=== PATIENT | female | born 1935 | race Caucasian/White ===

== ENCOUNTER → 2018-02-07 10:59 | Outpatient (REF) | payer OTHER, SELFPAY ==
[2018-02-07 11:20] LABS: Hemoglobin A1C% w Est Avg Glu 7.8 % (4.0-6.0)
[2018-02-07 11:37] LABS: Alanine Aminotransferase 24 IU/L (9-52); Albumin Globulin Ratio 1.5 (1.0-2.8); Alkaline Phosphatase 70 U/L (38-126); Aspartate Aminotransferase 18 IU/L (14-36); Bilirubin Total 1.3 mg/dL (0.2-1.3); Blood Urea Nitrogen 18 mg/dL (7-17); Calcium 9.7 mg/dL (8.4-10.2); Carbon Dioxide 31 mmol/L (22-32); Chloride 99 mmol/L (98-107); Cholesterol 164 mg/dL (140-199); Estimated Glomerular Filt Rate > 60.0 mL/min (>60); Globulin 2.6 g/dL (1.7-4.1); Glucose 119 mg/dL (80-110); HDL Cholesterol 71 mg/dL (40-60); HEMOLYSIS < 15 (0-50); LDL Cholesterol Calculated 69 mg/dL (<100); Sodium 138 mmol/L (137-145); Total Protein 6.6 g/dL (6.3-8.2); Triglycerides 118 mg/dL (35-150)
[2018-02-07 11:39] LABS: Potassium 5.8 mmol/L (3.4-5.1)
== END ==
LOC: LAB 10:59
PROVIDERS: Family Provider Internal Medicine; PCP Internal Medicine; Visit Provider Internal Medicine
DX: E11.9 Type 2 diabetes mellitus without complications (principal); E78.00 Pure hypercholesterolemia, unspecified
CPT/HCPCS: 80053; 80061; 83036

== ENCOUNTER → 2018-05-06 10:09 | Outpatient (CLI) | payer OTHER, SELFPAY | PROVIDERS: PCP Internal Medicine; Visit Provider Internal Medicine | DX: M85.88 Other specified disorders of bone density and structure, other site (principal); Z78.0 Asymptomatic menopausal state; Z87.891 Personal history of nicotine dependence | CPT/HCPCS: 77080 ==

== ENCOUNTER → 2018-12-18 12:17 | Outpatient (CLI) | payer OTHER, SELFPAY ==
--- NOTE | 2018-12-18 | DI.RAD.S_ITS ---
PROCEDURE: XR CHEST 2V INDICATIONS: COUGH CHRONIC TECHNIQUE: 2 views of the chest were acquired. COMPARISON: None. FINDINGS: Surgical changes and devices: None. Lungs and pleura: Lungs are clear. No pleural effusions or pneumothorax. Mediastinum: Mediastinal contours are normal. Heart size is normal. Bones and chest wall: No suspicious bony abnormalities. Soft tissues appear unremarkable. IMPRESSION: No acute cardiopulmonary pathology. Dictated by: Hu Santiago M.D. on 12/18/2018 at 14:05 Approved by: Hu Santiago M.D. on 12/18/2018 at 14:05
== END ==
PROVIDERS: PCP Internal Medicine; Visit Provider Internal Medicine
DX: R05 Cough (principal)
CPT/HCPCS: 71046

== ENCOUNTER → 2019-08-20 11:32 | Outpatient (CLI) | payer OTHER, SELFPAY ==
[2019-08-20 12:40] LABS: BUN Creatinine Ratio 31.7 (6-22); Blood Urea Nitrogen 19 mg/dL (7-17); Carbon Dioxide 29 mmol/L (22-32); Chloride 98 mmol/L (98-107); Estimated Glomerular Filt Rate > 60.0 mL/min (>60); Glucose 244 mg/dL (80-110); HEMOLYSIS < 15 (0-50); Potassium 4.3 mmol/L (3.4-5.1); Sodium 138 mmol/L (137-145)
[2019-08-20 12:54] LABS: Hemoglobin A1C% w Est Avg Glu 7.9 % (4.0-6.0)
== END ==
PROVIDERS: PCP Student in an Organized Health Care Education/Training Program; Referring Provider Student in an Organized Health Care Education/Training Program; Visit Provider Student in an Organized Health Care Education/Training Program
DX: E11.9 Type 2 diabetes mellitus without complications (principal); I10 Essential (primary) hypertension
CPT/HCPCS: 36415; 80048; 83036

== ENCOUNTER → 2019-09-01 10:07 | Outpatient (CLI) | payer OTHER, SELFPAY | PROVIDERS: PCP Student in an Organized Health Care Education/Training Program; Referring Provider Student in an Organized Health Care Education/Training Program; Visit Provider Student in an Organized Health Care Education/Training Program | DX: Z13.820 Encounter for screening for osteoporosis (principal); M85.851 Other specified disorders of bone density and structure, right thigh; Z78.0 Asymptomatic menopausal state; E11.9 Type 2 diabetes mellitus without complications; Z91.89 Other specified personal risk factors, not elsewhere classified; Z87.891 Personal history of nicotine dependence | CPT/HCPCS: 77080 ==

== ENCOUNTER → 2019-12-18 10:09 | Outpatient (CLI) | payer OTHER, SELFPAY ==
[2019-12-18 11:34] LABS: Hemoglobin A1C% w Est Avg Glu 9.9 % (4.0-6.0)
== END ==
PROVIDERS: PCP Student in an Organized Health Care Education/Training Program; Referring Provider Student in an Organized Health Care Education/Training Program; Visit Provider Student in an Organized Health Care Education/Training Program
DX: E11.9 Type 2 diabetes mellitus without complications (principal)
CPT/HCPCS: 36415; 83036

== ENCOUNTER → 2020-03-24 11:58 | Outpatient (CLI) | payer OTHER, SELFPAY ==
[2020-03-24 12:23] LABS: Hemoglobin A1C% w Est Avg Glu 9.1 % (4.0-6.0)
[2020-03-24 15:51] LABS: Creatinine Urine Random 49.1 mg/dL
[2020-03-24 15:58] LABS: Microalbumin Urine Random < 0.6 mg/dL (0-1.6)
== END ==
PROVIDERS: PCP Student in an Organized Health Care Education/Training Program; Referring Provider Student in an Organized Health Care Education/Training Program; Visit Provider Student in an Organized Health Care Education/Training Program
DX: E11.9 Type 2 diabetes mellitus without complications (principal)
CPT/HCPCS: 36415; 82043; 82570; 83036

== ENCOUNTER → 2020-09-13 15:28 | Outpatient (CLI) | payer MEDICARE, SELFPAY ==
[2020-09-13] MEDS: COVID-19 VACC, Ad26(JANSSEN)/PF 0.5 ML IM (15:48)
== END ==
PROVIDERS: PCP Student in an Organized Health Care Education/Training Program; Visit Provider Internal Medicine
DX: Z23 Encounter for immunization (principal)
CPT/HCPCS: 0031A; 91303

== ENCOUNTER → 2020-09-14 10:18 | Outpatient (CLI) | payer OTHER, SELFPAY ==
[2020-09-14 11:01] LABS: Hemoglobin A1C% w Est Avg Glu 9.9 % (4.0-6.0)
[2020-09-14 11:12] LABS: BUN Creatinine Ratio 30.5 (6-22); Blood Urea Nitrogen 18 mg/dL (7-17); Estimated Glomerular Filt Rate > 60.0 mL/min (>60)
== END ==
PROVIDERS: PCP Student in an Organized Health Care Education/Training Program; Referring Provider Student in an Organized Health Care Education/Training Program; Visit Provider Student in an Organized Health Care Education/Training Program
DX: E11.9 Type 2 diabetes mellitus without complications (principal); I10 Essential (primary) hypertension
CPT/HCPCS: 36415; 82565; 83036; 84520

== ENCOUNTER → 2020-12-31 14:53 | Outpatient (CLI) | payer OTHER, SELFPAY ==
[2020-12-31 15:55] LABS: Hemoglobin A1C% w Est Avg Glu 9.8 % (4.0-6.0)
[2020-12-31 16:03] LABS: BUN Creatinine Ratio 30.4 (6-22); Blood Urea Nitrogen 17 mg/dL (7-17); Estimated Glomerular Filt Rate > 60.0 mL/min (>60)
== END ==
PROVIDERS: PCP Student in an Organized Health Care Education/Training Program; Referring Provider Student in an Organized Health Care Education/Training Program; Visit Provider Student in an Organized Health Care Education/Training Program
DX: E11.9 Type 2 diabetes mellitus without complications (principal); I10 Essential (primary) hypertension
CPT/HCPCS: 36415; 82565; 83036; 84520

== ENCOUNTER 2021-03-29 11:31 | Emergency (ER) | payer OTHER, SELFPAY ==
[2021-03-29 11:35] VITALS: BP 138/67; PULSE 93; RESP 14; TEMP 36.8; O2SAT 98
--- NOTE | 2021-03-29 11:39 | DI.RAD.S_ITS ---
PROCEDURE: XR FOOT LT MIN 3V INDICATIONS: Foot pain unknown injury TECHNIQUE: 3 views of the foot were acquired. COMPARISON: None. FINDINGS: Bones: No fractures or dislocations. No suspicious bony lesions. Soft tissues: No tibiotalar joint effusion. Achilles tendon appears normal. IMPRESSION: No acute finding. Dictated by: Jesse Cain M.D. on 03/29/2021 at 12:01 Approved by: Jesse Cain M.D. on 03/29/2021 at 12:02
--- NOTE | 2021-03-29 13:37 | DI.US.S_ITS ---
PROCEDURE: US PERIPH VENOUS LOW EXTREM LT INDICATIONS: PAIN, REDNESS, AND SWELLING. NO INJURY. TECHNIQUE: Real-time imaging, as well as color and pulse Doppler interrogation, were performed of the lower extremity deep veins from the inguinal ligament to the popliteal fossa. COMPARISON: None. FINDINGS: The common femoral, femoral and popliteal veins are normally compressible, and free of intraluminal thrombus. Color and pulse Doppler demonstrate normal phasic intraluminal flow. There is normal augmentation response to distal compression maneuver. IMPRESSION: No sonographic evidence of DVT. Dictated by: Jesse Cain M.D. on 03/29/2021 at 14:10 Approved by: Jesse Cain M.D. on 03/29/2021 at 14:11
[2021-03-29 13:53] LABS: Add Manual Diff / Slide Review NO; Basophils Absolute Auto 100 /uL (0-100); Basophils Percent Auto 0.6 % (0-2); Eosinophils Absolute Auto 0 /uL (0-450); Eosinophils Percent Auto 0.3 % (2-4); Hemoglobin 14.3 g/dL (12.0-16.0); Lymphocytes Absolute Auto 2100 /uL (1100-4500); Lymphocytes Percent Auto 15.5 % (25-40); Mean Corpuscular HGB Conc 32.4 % (30-36); Mean Corpuscular Volume 86.5 fL (80-100); Monocytes Absolute Auto 800 /uL (0-900); Monocytes Percent Auto 5.9 % (3-14); Neutrophils Absolute Auto 10500 /uL (1500-7000); Neutrophils Percent Auto 77.7 % (50-75); Platelet Count 298 X10^3/uL (150-400); Red Blood Cell Count 5.09 X10^6/uL (4.0-5.2); White Blood Cell Count 13.5 X10^3/uL (4.5-11.0)
[2021-03-29 14:04] LABS: C-Reactive Protein Quant 1.2 mg/dL (<1.0); Uric Acid 4.8 mg/dL (2.5-6.2)
[2021-03-29 14:18] LABS: Erythrocyte Sedimentation Rate 11 MM/HR (0-20)
--- NOTE | 2021-03-29 14:23 | ED_ITS ---
HPI - Extremity Problem General Chief complaint: Extremity Problem,Nontraumatic Stated complaint: CONSTANT PAIN IN LEFT FOOT X 5 DAYS Time Seen by Provider: 03/29/21 13:34 Source: patient Mode of arrival: Wheelchair Limitations: no limitations History of Present Illness HPI Narrative: 86-year-old female former smoker with history of diabetes presents with a chief complaint of left foot pain, redness and swelling over the past 5 days. She denies any injury. She has had no fever or chills. She is not dizzy nor weak or lightheaded. She denies any knee or calf pain. She denies any overuse, significant walking, cuts or injuries to her foot. Related Data Home Medications Medication Instructions Recorded Confirmed prednisolone acetate 1 % eye 1 drop EYE-LEFT BID ml 08/20/19 09/14/20 drops,suspension Previous Rx's Medication Instructions Recorded ketorolac 0.5 % eye drops 1 drop EYE-LEFT BID #3 ml 08/20/19 Glucose Test Strips #250 ea 08/16/20 glipizide 10 mg tablet, extended 10 mg PO BID #180 tab 09/18/20 release 24 hr blood sugar diagnostic (Blood #100 ea 09/22/20 Glucose Test) blood-glucose meter #1 ea 09/22/20 lancets 26 gauge #100 ea 09/22/20 pen needle, diabetic 31 gauge x #100 ea 12/28/2011/14 (CareFine Pen Needle) insulin detemir U-100 100 unit/mL 10 unit SUBCUT BEDTIME #15 ml 01/01/21 (3 mL) subcutaneous pen losartan 25 mg tablet 25 mg PO DAILY #90 tab 01/31/21 metformin 850 mg tablet 850 mg PO TID #270 tab 02/04/21 simvastatin 20 mg tablet 20 mg PO DAILY #90 tab 02/04/21 amoxicillin 875 mg-potassium 1 tab PO BID #20 tab 03/29/21 clavulanate 125 mg tablet (Augmentin) Allergies Allergy/AdvReac Type Severity Reaction Status Date / Time lisinopril AdvReac Mild Cough Verified 03/29/21 11:35 Review of Systems Review of Systems Narrative: GENERAL: Denies chills, fatigue, malaise, fever, sweats. HEENT: Denies sinus pain, ear pain, sore throat, difficulty swallowing, dizziness. RESPIRATORY: Denies dyspnea, cough, wheezing, hemoptysis, sputum. CARDIOVASCULAR: Denies chest pain, palpitations, orthopnea, edema, GASTROINTESTINAL: Denies nausea, vomiting, abdominal pain, diarrhea, constipation, melena. : Denies dysuria, frequency, incontinence, hematuria, urinary retention. MUSCULOSKELETAL: See HPI SKIN: See HPI NEUROLOGIC: Denies weakness, headache, numbness, change in speech, confusion, seizures, incoordination. PSYCHIATRIC: No concerning psychosocial issues. 12 point review of systems is negative except for those stated above Patient History Medical History (Updated 03/29/21 @ 14:28 by Brendan Moon DO) Benign familial tremor (~2017) Cataracts, bilateral (~2009) Chicken pox (~1940) Fractures (~2013) Hip pain (~2017) History of ectopic (~1958) Hypertension (~1997) Knee pain (~2017) Measles (~1939) Whooping cough (~1941) Surgical History (Updated 08/18/19 @ 21:17 by Zarina Mg) Anesthesia History of ectopic (~1958) Skin cancer of nose (~2014) Family History (Updated 08/18/19 @ 21:21 by Zarina Mg) Father Stroke Mother Lung cancer Brother Cancer Sister Abdominal infection Grandfather Prostate cancer Social History Smoking Status: Former smoker Smoking Status: Former smoker alcohol intake frequency: 0-2 drinks per day Substance Use Type: does not use Exam Narrative Exam Narrative: GEN: AOx3 and in mild distress EYES: Pupils are equal, round, and reactive to light and accommodation. Extraoccular muscles are intact bilaterally. There is no subconjunctival hemorrhage or exudate. CHEST: Lungs are clear to auscultation bilaterally and free of wheezes, rales, or rhonchi. Heart rate is regular rhythm, there are no murmurs, clicks, rubs, or gallops. There is no chest wall tenderness. ABD: Abdomen is soft and nontender. There is no guarding or rebound. Bowel sounds are normal in all 4 quadrants. There is no mass or organomegaly. EXT: Left lubricating machine tender to palpation with edema, redness and warmth. There is no in duration, fluctuance. There is no numbness or tingling. No obvious injury, cuts or breaks in the skin SKIN: Left foot with redness and warmth Initial Vital Signs Initial Vital Signs: Vital Signs Temperature 98.2 F 03/29/21 11:35 Pulse Rate 93 H 03/29/21 11:35 Respiratory Rate 14 03/29/21 11:35 Blood Pressure 138/67 03/29/21 11:35 Pulse Oximetry 98 03/29/21 11:35 Course Orders Ordered: ED Orders 03/29/21 11:39 XR foot LT min 3V Stat 03/29/21 13:37 US periph venous low extrem lt Stat 03/29/21 13:47 C-Reactive Protein Quant Stat Complete Blood Count AUTO DIFF Stat Erythrocyte Sedimentation Rate Stat Uric Acid Stat Vital Signs Vital signs: Vital Signs - 8 hr 03/29/21 11:35 03/29/21 14:32 Temperature 98.2 F Pulse Rate 93 H 90 Respiratory Rate 14 Blood Pressure 138/67 124/58 L Pulse Oximetry 98 99 MDM - Extremity (Nontraumatic) Lab Data Result diagrams: 03/29/21 13:47 Labs: Lab Results 03/29/21 03/29/21 Range/Units 13:47 13:47 WBC 13.5 H (4.5-11.0) X10^3/uL RBC 5.09 (4.0-5.2) X10^6/uL Hgb 14.3 (12.0-16.0) g/dL Hct 44.0 (36-46) % MCV 86.5 (80-100) fL MCH 28.0 (26-34) PG MCHC 32.4 (30-36) % RDW 14.0 (11.6-14.8) % Plt Count 298 (150-400) X10^3/uL Neut % (Auto) 77.7 H (50-75) % Lymph % (Auto) 15.5 L (25-40) % [place] % (Auto) 5.9 (3-14) % Eos % (Auto) 0.3 L (2-4) % Baso % (Auto) 0.6 (0-2) % Neut # (Auto) 37236 H (8818-1659) /uL Lymph # (Auto) 2100 (1030-5056) /uL [place] # (Auto) 800 (0-900) /uL Eos # (Auto) 0 (0-450) /uL Baso # (Auto) 100 (0-100) /uL ESR 11 (0-20) MM/HR Uric Acid 4.8 (2.5-6.2) mg/dL C-Reactive Protein 1.2 H (<1.0) mg/dL Imaging Data Extremity x-ray #1: Radiologist's Impression: [address] [address] XRay Report Signed Patient: Mariposa Posadas MR#: [id number] : 1935 Acct:[id number] Age/Sex: 86 / F Date of Service: 03/29/21 Loc: ED Accession Number: [id number] ?? Procedure: XR foot LT min 3V Ordering Provider: Brendan Moon D.O. PROCEDURE:? XR FOOT LT MIN 3V ? INDICATIONS:? Foot pain unknown injury ? TECHNIQUE:? 3 views of the foot were acquired.? ? COMPARISON:? None. ? FINDINGS:? ? Bones:? No fractures or dislocations.? No suspicious bony lesions.? ? Soft tissues:? No tibiotalar joint effusion.? Achilles tendon appears normal.? ? ? IMPRESSION:? No acute finding. ? ? Dictated by: Jesse Cain M.D. on 03/29/2021 at 12:01 ? ? Approved by: Jesse Cain M.D. on 03/29/2021 at 12:02 ? US - DVT: Radiologist's Impression: [address] [address] Ultrasound Report Signed Patient: Mariposa Posadas MR#: [id number] : 1935 Acct:[id number] Age/Sex: 86 / F Date of Service: 03/29/21 Loc: ED Accession Number: [id number] ?? Procedure: US periph venous low extrem lt Ordering Provider: Brendan Moon D.O. PROCEDURE:? US PERIPH VENOUS LOW EXTREM LT ? INDICATIONS:? PAIN, REDNESS, AND SWELLING. NO INJURY. ? TECHNIQUE:? Real-time imaging, as well as color and pulse Doppler interrogation, were performed of the lower extremity deep veins from the inguinal ligament to the popliteal fossa.? ? COMPARISON:? None. ? FINDINGS:? The common femoral, femoral and popliteal veins are normally compressible, and free of intraluminal thrombus.? Color and pulse Doppler demonstrate normal phasic intraluminal flow.? There is normal augmentation response to distal compression maneuver. ? ? IMPRESSION:? No sonographic evidence of DVT. ? ? Dictated by: Jesse Cain M.D. on 03/29/2021 at 14:10 ? ? Approved by: Jesse Cain M.D. on 03/29/2021 at 14:11 ? MDM Narrative Medical decision making narrative: Patient with painful swollen foot in the absence of injury. There is erythema and warmth. She was evaluated for cellulitis versus clot versus gouty arthritis. Ultrasound shows no evidence of clot. Patient is diabetic and has some cracking in her skin but no obvious wound, she does have an elevation in her white blood cells and the seems most consistent with infection. She is treated with antibiotics. She is given extensive return precautions and questions have been answered to her apparent satisfaction Discharge Plan Departure Patient Disposition: Home Clinical Impression: Cellulitis of foot, left Activity Restrictions/Additional Instructions: *You have been diagnosed with [left foot pain and redness likely due to infection. X-ray and ultrasound are very reassuring and showed no evidence of fracture or clot *What to do: *Please continue to take your regular medications as directed. [x ] New medication prescriptions sent to your pharmacy: [[facility] ] [ ] New medication written as a paper prescription [ ] No new medications given *Please follow up with your primary care provider in 2-3 days, call for an appointment. Let them know you were seen in the Emergency Department and that we ask that you be seen in follow up. We will electronically transmit a record of today's note if your PCP is in our system *If you do not have a primary care provider please contact the [facility] Resource line at [phone]. They will ask some questions about your medical history and help get you set up with a doctor in the community. *Return to Emergency Department if you should have any new, worsening or concerning symptoms, such as [fever greater than 101 F, shaking chills, worsening pain, persistent vomiting or other bothersome symptoms] Prescriptions: New amoxicillin-pot clavulanate [Augmentin] 875-125 mg tablet 1 tab PO BID Qty: 20 RF: 0 No Action (DME) Glucose Test Strips Qty: 250 RF: 6 glipizide 10 mg tablet extended release 24hr 10 mg PO BID Qty: 180 RF: 1 (DME) blood-glucose meter Misc See Rx Instructions .ROUTE .MEDSUPPLY Qty: 1 RF: 0 (DME) Blood Glucose Test Strip See Rx Instructions .ROUTE .MEDSUPPLY Qty: 100 RF: 3 (DME) lancets 26 gauge misc See Rx Instructions .ROUTE .MEDSUPPLY Qty: 100 RF: 0 (DME) pen needle, diabetic [CareFine Pen Needle] 31 gauge x 5/16 needle See Rx Instructions .ROUTE .MEDSUPPLY Qty: 100 RF: 0 insulin detemir U-100 100 unit/mL (3 mL) insulin pen 10 unit SUBCUT BEDTIME Qty: 15 RF: 3 losartan 25 mg tablet 25 mg PO DAILY Qty: 90 RF: 1 metformin 850 mg tablet 850 mg PO TID Qty: 270 RF: 0 simvastatin 20 mg tablet 20 mg PO DAILY Qty: 90 RF: 0 prednisolone acetate 1 % drops,suspension 1 drop EYE-LEFT BID RF: 0 ketorolac 0.5 % drops 1 drop EYE-LEFT BID Qty: 3 RF: 0 Referrals: Junior Steward MD [Primary Care Provider] -
[2021-03-29 14:32] VITALS: BP 124/58; PULSE 90; O2SAT 99
== END 2021-03-29 14:37 | disposition home or self-care (01) ==
PROVIDERS: Emergency Provider Emergency Medicine; PCP Student in an Organized Health Care Education/Training Program
DX: L03.116 Cellulitis of left lower limb (principal)
CPT/HCPCS: 73630; 84550; 85025; 85651; 86140; 93971; 99284

== ENCOUNTER → 2021-05-28 08:38 | Outpatient (CLI) | payer OTHER, SELFPAY ==
[2021-05-28 09:25] LABS: BUN Creatinine Ratio 27.9 (6-22); Blood Urea Nitrogen 17 mg/dL (7-17); Estimated Glomerular Filt Rate > 60.0 mL/min (>60)
[2021-05-28 09:48] LABS: Hemoglobin A1C% w Est Avg Glu 8.8 % (4.0-6.0)
== END ==
PROVIDERS: PCP Student in an Organized Health Care Education/Training Program; Referring Provider Student in an Organized Health Care Education/Training Program; Visit Provider Student in an Organized Health Care Education/Training Program
DX: E11.9 Type 2 diabetes mellitus without complications (principal)
CPT/HCPCS: 36415; 82565; 83036; 84520

== ENCOUNTER → 2022-01-03 16:02 | Outpatient (CLI) | payer OTHER, SELFPAY ==
--- NOTE | 2022-01-03 16:04 | DI.RAD.S_ITS ---
PROCEDURE: XR KNEE RT 3V INDICATIONS: Right knee pain TECHNIQUE: 3 views of the knee were acquired. COMPARISON: None. FINDINGS: Bones: No fractures or dislocations. No suspicious bony lesions. Moderate to severe narrowing of the medial femorotibial joint and tricompartmental periarticular osteophyte formation. Soft tissues: Moderate joint effusion. No suspicious soft tissue calcifications. 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 Dictated by: Ben Pa Brennen Interpreted: Rochelle Rivera MD on 01/03/2022 at 17:05 Transcribed by: NIRALI on 01/03/2022 at 17:05 Approved by: Rochelle Rivera M.D. on 01/19/2022 at 8:32
[2022-01-03 17:15] LABS: Erythrocyte Sedimentation Rate 13 MM/HR (0-20)
[2022-01-03 17:18] LABS: Blood Urea Nitrogen 18 mg/dL (7-17); C-Reactive Protein Quant 1.4 mg/dL (<1.0); Calcium 9.6 mg/dL (8.4-10.2); Carbon Dioxide 28 mmol/L (22-32); Chloride 99 mmol/L (98-107); Cholesterol 162 mg/dL (140-199); Estimated Glomerular Filt Rate > 60 mL/min (>60); Glucose 183 mg/dL (80-110); HDL Cholesterol 77 mg/dL (40-60); HEMOLYSIS < 15 (0-50); LDL Cholesterol Calculated 57 mg/dL (<100); Potassium 4.8 mmol/L (3.4-5.1); Sodium 135 mmol/L (137-145); Triglycerides 142 mg/dL (35-150); Uric Acid 4.9 mg/dL (2.5-6.2)
[2022-01-03 17:28] LABS: Hemoglobin A1C% w Est Avg Glu 7.7 % (4.0-6.0)
[2022-01-03 18:00] LABS: Vitamin B12 220 pg/mL (239-931)
== END ==
PROVIDERS: PCP Student in an Organized Health Care Education/Training Program; Referring Provider Student in an Organized Health Care Education/Training Program; Visit Provider Student in an Organized Health Care Education/Training Program
DX: E11.65 Type 2 diabetes mellitus with hyperglycemia (principal); M25.561 Pain in right knee; I10 Essential (primary) hypertension; T50.905A Adverse effect of unspecified drugs, medicaments and biological substances, initial encounter; Z79.4 Long term (current) use of insulin; E11.69 Type 2 diabetes mellitus with other specified complication; E78.5 Hyperlipidemia, unspecified; M17.11 Unilateral primary osteoarthritis, right knee
CPT/HCPCS: 36415; 73562; 80048; 80061; 82607; 83036; 84550; 85651; 86140

== ENCOUNTER → 2022-01-03 16:28 | Outpatient (CLI) | payer OTHER, SELFPAY | PROVIDERS: PCP Student in an Organized Health Care Education/Training Program; Referring Provider Student in an Organized Health Care Education/Training Program; Visit Provider Student in an Organized Health Care Education/Training Program | DX: M25.561 Pain in right knee (principal) ==

== ENCOUNTER 2022-01-28 09:18 | Emergency (ER) | payer OTHER, SELFPAY ==
[2022-01-28] VITALS (10 sets, daily range): BP systolic 166–192; BP diastolic 72–82; PULSE 65–79; RESP 20–24; TEMP 36.7; O2SAT 96–98; BMI 32.1
--- NOTE | 2022-01-28 10:03 | DI.RAD.S_ITS ---
PROCEDURE: XR RIBS RT MIN 3V W CXR 1V INDICATIONS: fall, right rib pain, bruising last week TECHNIQUE: 2 views of the right ribs were acquired, along with a single view chest. COMPARISON: [facility], , XR CHEST 2V, 12/18/2018, 12:22. FINDINGS: Surgical changes and devices: None. Bones and chest wall: A marker is placed upon the area of clinical concern. Within this region, no displaced rib fracture or other significant rib abnormality can be seen. No rib fractures are seen elsewhere. No suspicious bony lesions. Age-appropriate bony degenerative changes are seen. Overlying soft tissues appear unremarkable. Lungs and pleura: No pleural effusions or pneumothorax. Lungs appear clear. Mediastinum: Mediastinal contours appear normal. Heart size is normal. IMPRESSION: No displaced rib fracture can be seen. No pneumothorax. Dictated by: Harpreet John M.D. on 01/28/2022 at 10:09 Approved by: Harpreet John M.D. on 01/28/2022 at 10:10
[2022-01-28 10:14] LABS: Add Manual Diff / Slide Review NO; Basophils Absolute Auto 0 /uL (0-100); Basophils Percent Auto 0.3 % (0-2); Eosinophils Absolute Auto 0 /uL (0-450); Eosinophils Percent Auto 0.4 % (2-4); Hematocrit 43.2 % (36-46); Hemoglobin 14.4 g/dL (12.0-16.0); Lymphocytes Absolute Auto 2100 /uL (1100-4500); Lymphocytes Percent Auto 22.7 % (25-40); Mean Corpuscular HGB Conc 33.3 % (30-36); Mean Corpuscular Hemoglobin 28.1 PG (26-34); Mean Corpuscular Volume 84.5 fL (80-100); Monocytes Absolute Auto 700 /uL (0-900); Monocytes Percent Auto 7.6 % (3-14); Neutrophils Absolute Auto 6500 /uL (1500-7000); Platelet Count 275 X10^3/uL (150-400); Red Blood Cell Count 5.11 X10^6/uL (4.0-5.2); Red Cell Distribution Width 14.8 % (11.6-14.8); White Blood Cell Count 9.4 X10^3/uL (4.5-11.0)
[2022-01-28 10:19] LABS: Alanine Aminotransferase 18 IU/L (<35); Albumin Globulin Ratio 1.3 (1.0-2.8); Alkaline Phosphatase 68 U/L (38-126); Aspartate Aminotransferase 28 IU/L (14-36); Bilirubin Total 1.2 mg/dL (0.2-1.3); Blood Urea Nitrogen 14 mg/dL (7-17); Calcium 8.8 mg/dL (8.4-10.2); Carbon Dioxide 28 mmol/L (22-32); Chloride 103 mmol/L (98-107); Creatine Kinase 65 U/L (30-135); Estimated Glomerular Filt Rate > 60 mL/min (>60); Glucose 144 mg/dL (80-110); HEMOLYSIS 17 (0-50); Lipase 23 U/L (23-300); Lipase 25 U/L (23-300); Potassium 4.4 mmol/L (3.4-5.1); Sodium 138 mmol/L (137-145)
[2022-01-28 10:30] LABS: COVID19 -Nasal RAPID Negative (Negative)
[2022-01-28 10:31] LABS: Troponin I < 0.012 ng/mL (0.01-0.034)
--- NOTE | 2022-01-28 11:45 | ED_ITS ---
HPI - Weakness General Chief complaint: Weakness Stated complaint: Hypoglycemic Time Seen by Provider: 01/28/22 10:03 Source: patient and EMS Mode of arrival: EMS Limitations: no limitations History of Present Illness HPI Narrative: This is a 87-year-old female with known insulin-dependent diabetes high, hypertension, dyslipidemia and chronic osteoarthritis. Patient states that she had been ill for the past week she had night sweats about a week ago Sunday, she had vomiting for 2 or 3 days as well as diarrhea. She has stopped vomiting for the past 2 days but had decreased her oral intake quite a bit. Patient states yesterday she was not feeling well EMS came and found her glucose was low after she had a fall and was unable to get up. They gave her dextrose and it had improved patient refused transport at that time. She did use her regular insulin last night but did not use her insulin this morning. She was found to be low again. She states that she was in bed getting ready to get up and go get a shower when she was thrashing around. She denies fevers or chills in the last 2 days, no chest pain, no shortness of breath, no headache, no nausea or vomiting. She states her bowel movements have normalized. She denies any dysuria, urgency or frequency. She denies any numbness, tingling or weakness. Patient does not check her glucose all of the time but sometimes does. She has been on her other medications she states she had her medication changed several months ago but nothing recently. She only uses 1 type of insulin she is not sure what kind it is but has insulin NPH you 100 in the EMR. Patient states she did have some bruising and pain in her right ribs after the fall. Related Data Home Medications Medication Instructions Recorded Confirmed prednisolone acetate 1 % eye 1 drop EYE-LEFT BID 08/20/19 01/03/22 drops,suspension aspirin 81 mg tablet,delayed 81 mg PO DAILY 06/07/21 01/03/22 release Previous Rx's Medication Instructions Recorded ketorolac 0.5 % eye drops 1 drop EYE-LEFT BID #3 mL 08/20/19 Glucose Test Strips #250 ea 08/16/20 blood-glucose meter #1 ea 09/22/20 lancets 26 gauge #100 ea 09/22/20 pen needle, diabetic 31 gauge x #100 ea 10/28/21 5/16 (CareFine Pen Needle) glipizide 10 mg tablet, extended 10 mg PO BID #180 tabs 05/12/21 release 24 hr metformin 850 mg tablet 850 mg PO .TIDCC #270 tabs 05/12/21 simvastatin 20 mg tablet 20 mg PO DAILY #90 tabs 05/12/21 blood sugar diagnostic (Blood #100 ea 07/04/21 Glucose Test strips) insulin NPH isoph U-100 human 100 See Rx Instructions SUBCUT 08/19/21 unit/mL (3 mL) subcutaneous pen .COMPLEX #36 mL (Humulin N NPH U-100 Insulin KwikPen) losartan 25 mg tablet 25 mg PO DAILY #90 tabs 01/27/22 Allergies Allergy/AdvReac Type Severity Reaction Status Date / Time lisinopril AdvReac Mild Cough Verified 01/03/22 15:47 Review of Systems Review of Systems ROS Unobtainable: All systems reviewed & are unremarkable except as noted in HPI and below Patient History Medical History Benign familial tremor (~2017) Cataracts, bilateral (~2009) Chicken pox (~194) Fractures (~2013) Hip pain (~2017) History of ectopic (~1958) Hypertension (~1997) Knee pain (~2017) Measles (~194) Skin cancer (~2012) Whooping cough (~194) Surgical History Anesthesia History of ectopic (~1958) Skin cancer of nose (~2014) Family History Father Stroke Mother Lung cancer Brother Cancer Sister Abdominal infection Grandfather Prostate cancer Social History Smoking Status: Former smoker Smoking Status: Former smoker alcohol intake frequency: 0-2 drinks per day Substance Use Type: does not use Exam Narrative Exam Narrative: GEN: Patient appears in mild distress. HEAD: No evidence of trauma, no raccoon/Vidal sign. NECK: Nontender, painless range of motion, trachea midline Negative Nexus criteria, there is no midline line tenderness, distracting injury, altered mental status, neuro deficit, recent EtOH. EYES: PERRLA, EOMI ENT: External inspection normal, trachea is midline, TM's are normal no hemotypanum, Nares are clear, no septal hematoma, no dental or oral injury, airway is normal and with normal occlusion, No bony tenderness RESP: Chest is nontender and has symmetric movement, no ecchymosis on patient's chest but she has some mild ecchymosis on the right flank about 2 cm x 3 cm but no hematoma, breath sounds are normal no crackles, wheezes or rales CVS: Heart sounds are normal, no murmur noted, No JVD. ABG/GI: Nontender, soft, normal bowel sounds, no distention, no organomegaly, pelvic rock is negative NEURO: Oriented AOx3, neuro is grossly intact, sensation and motor is normal all 4 extremities moving, cranial nerves II through XII are intact, GCS is 15 PSYCH: Normal mood and affect SKIN: Intact, warm and dry, no crepitus and without decubitus BACK: No CVA tenderness, no vertebral tenderness, no step-off's, no crepitus EXT: Atraumatic, hips are nontender, no pedal edema, normal color and temperature, normal range of motion of extremities with normal tendon exam, 2+ pulses in all four extremities Initial Vital Signs Initial Vital Signs: Vital Signs Pulse Rate 79 01/28/22 09:31 Pulse Oximetry 98 01/28/22 09:31 Course Orders Ordered: ED Orders 01/28/22 09:52 Complete Blood Count AUTO DIFF Stat Comprehensive Metabolic Panel Stat Lipase Stat Lipase Stat Troponin & CK Cardiac Panel Stat 01/28/22 10:03 XR ribs RT min 3V w CXR1V Stat EKG-12 Lead Stat 01/28/22 10:07 COVID19 -Nasal RAPID/Pre-Proc Stat Vital Signs Vital signs: Vital Signs - 8 hr 01/28/22 12:00 01/28/22 12:51 Pulse Rate 77 Respiratory Rate 23 Blood Pressure 182/75 H Pulse Oximetry 96 MDM - Weakness Lab Data Result diagrams: 01/28/22 09:52 01/28/22 09:52 Labs: Lab Results 01/28/22 01/28/22 01/28/22 Range/Units 09:52 09:52 09:52 WBC 9.4 (4.5-11.0) X10^3/uL RBC 5.11 (4.0-5.2) X10^6/uL Hgb 14.4 (12.0-16.0) g/dL Hct 43.2 (36-46) % MCV 84.5 (80-100) fL MCH 28.1 (26-34) PG MCHC 33.3 (30-36) % RDW 14.8 (11.6-14.8) % Plt Count 275 (150-400) X10^3/uL Neut % (Auto) 69.0 (50-75) % Lymph % (Auto) 22.7 L (25-40) % [place] % (Auto) 7.6 (3-14) % Eos % (Auto) 0.4 L (2-4) % Baso % (Auto) 0.3 (0-2) % Neut # (Auto) 6500 (2507-2083) /uL Lymph # (Auto) 2100 (4782-5362) /uL [place] # (Auto) 700 (0-900) /uL Eos # (Auto) 0 (0-450) /uL Baso # (Auto) 0 (0-100) /uL Sodium 138 (137-145) mmol/L Potassium 4.4 (3.4-5.1) mmol/L Chloride 103 (98-107) mmol/L Carbon Dioxide 28 (22-32) mmol/L BUN 14 (7-17) mg/dL Creatinine 0.61 (0.52-1.04) mg/dL Estimated GFR > 60 (>60) mL/min BUN/Creatinine Ratio 23.0 H (6-22) Glucose 144 H (80-110) mg/dL Calcium 8.8 (8.4-10.2) mg/dL Total Bilirubin 1.2 (0.2-1.3) mg/dL AST 28 (14-36) IU/L ALT 18 (<35) IU/L Alkaline Phosphatase 68 (38-126) U/L Total Creatine Kinase 65 (30-135) U/L CK-MB (CK-2) TNP CK-MB (CK-2) Rel Index TNP Troponin I < 0.012 (0.01-0.034) ng/mL Total Protein 7.0 (6.3-8.2) g/dL Albumin 4.0 (3.5-5.0) g/dL Globulin 3.0 (1.7-4.1) g/dL Albumin/Globulin Ratio 1.3 (1.0-2.8) Lipase 23 (23-300) U/L SARS-CoV-2 (PCR) (Negative) 01/28/22 01/28/22 Range/Units 09:52 10:07 WBC (4.5-11.0) X10^3/uL RBC (4.0-5.2) X10^6/uL Hgb (12.0-16.0) g/dL Hct (36-46) % MCV (80-100) fL MCH (26-34) PG MCHC (30-36) % RDW (11.6-14.8) % Plt Count (150-400) X10^3/uL Neut % (Auto) (50-75) % Lymph % (Auto) (25-40) % [place] % (Auto) (3-14) % Eos % (Auto) (2-4) % Baso % (Auto) (0-2) % Neut # (Auto) (7689-0278) /uL Lymph # (Auto) (8882-2925) /uL [place] # (Auto) (0-900) /uL Eos # (Auto) (0-450) /uL Baso # (Auto) (0-100) /uL Sodium (137-145) mmol/L Potassium (3.4-5.1) mmol/L Chloride (98-107) mmol/L Carbon Dioxide (22-32) mmol/L BUN (7-17) mg/dL Creatinine (0.52-1.04) mg/dL Estimated GFR (>60) mL/min BUN/Creatinine Ratio (6-22) Glucose (80-110) mg/dL Calcium (8.4-10.2) mg/dL Total Bilirubin (0.2-1.3) mg/dL AST (14-36) IU/L ALT (<35) IU/L Alkaline Phosphatase (38-126) U/L Total Creatine Kinase (30-135) U/L CK-MB (CK-2) CK-MB (CK-2) Rel Index Troponin I (0.01-0.034) ng/mL Total Protein (6.3-8.2) g/dL Albumin (3.5-5.0) g/dL Globulin (1.7-4.1) g/dL Albumin/Globulin Ratio (1.0-2.8) Lipase 25 (23-300) U/L SARS-CoV-2 (PCR) Negative (Negative) Point of Care Testing Glucose POC 113 Urine Dip Bedside Urine Glucose Negative Bedside Urine Bilirubin - Negative Bedside Urine Ketone - Negative Urine Specific [place] 1.030 Bedside Urine Occult Blood - Negative Bedside Urine pH 5.5 Bedside Urine Protein - Negative Bedside Urine Urobilinogen 1+ 2mg Bedside Urine Nitrite - Negative Bedside Urine Leukocytes - Negative Esterase Imaging Data Chest x-ray: Radiologist Impression: [address] [address] XRay Report Signed Patient: Mariposa Posadas MR#: [id number] : 1935 Acct:[id number] Age/Sex: 87 / F Date of Service: 01/28/22 Loc: ED Accession Number: [id number] ?? Procedure: XR ribs RT min 3V w CXR1V Ordering Provider: Savannah Anthony D.O. PROCEDURE:? XR RIBS RT MIN 3V W CXR 1V ? INDICATIONS:? fall, right rib pain, bruising last week ? TECHNIQUE:? 2 views of the right ribs were acquired, along with a single view chest.? ? COMPARISON:? [facility], CR, XR CHEST 2V, 12/18/2018, 12:22. ? FINDINGS:? ? Surgical changes and devices:? None.? ? Bones and chest wall:? A marker is placed upon the area of clinical concern.? Wi thin this region, no displaced rib fracture or other significant rib abnormality can be seen.? No rib fractures are seen elsewhere.? No suspicious bony lesions.? Age-appropriate bony degenerative changes are seen.? Overlying soft tissues appear unremarkable.? ? Lungs and pleura:? No pleural effusions or pneumothorax.? Lungs appear clear.? ? Mediastinum:? Mediastinal contours appear normal.? Heart size is normal.? IMPRESSION:? ? No displaced rib fracture can be seen. ? No pneumothorax. ? ? Dictated by: Harpreet John M.D. on 01/28/2022 at 10:09 ? ? Approved by: Harpreet John M.D. on 01/28/2022 at 10:10??? ECG Data Attestation: I personally reviewed and interpreted this ECG as follows: Interpretation: Sinus rhythm with sinus arrhythmia first-degree AV block. Rate of 65 VT 232, QRS of 102 and QTC 384. Patient has T-wave inversion in 3, no other ST changes appreciated RSR in lateral lead. Patient does not have any priors for comparison. MDM Narrative Medical decision making narrative: This is a 87-year-old female with known diabetes on insulin. Patient states she has not been having much intake because she was sick earlier in the week but that had improved. She tests negative for COVID no acute changes on her lab work, EKG, troponin or other clear signs. She does have some ecchymosis, no obvious rib fractures but could have some contusion. She is able to ambulate in the department she is maintained her glucose here she is been eating. Discussed to hold her insulin tonight, continue to monitor her sugars if they are becoming elevated she can re-initiate her insulin. She does need to make sure she is eating and drinking regularly. If she is getting consistent lows to hold her insulin for the short term she is on multiple medications that could contribute to hypoglycemia. There does not appear to be any other cause noted today. Discharge Plan Departure Patient Disposition: Home Clinical Impression: Hypoglycemia, Contusion of flank Instructions: DI for Hypoglycemia Activity Restrictions/Additional Instructions: Follow-up with your physician this coming week for recheck. I suspect your low blood glucose is secondary to not eating the last several days. Your labs, EKG and imaging are reassuring there is no obvious rib fractures on your imaging today. Please continue to check your glucose before giving yourself any insulin. If your glucose is not greater than 150 please hold your insulin. If your glucose is low or less than 100 make sure to eat. You may need to talk with your physician about decreasing your insulin if your glucose is running low. You can call the office even on the weekends for guidance about dosing regimen. Please return for altered mental status, persistently low blood sugars, headaches, chest pain, shortness of breath, passing out, persistent vomiting, diarrhea, black or bloody stools or other new or concerning symptoms. Prescriptions: No Action (DME) Glucose Test Strips Qty: 250 6RF Rx Instructions: USE TO TEST BLOOD SUGARS 2X A DAY. (DME) blood-glucose meter Misc See Rx Instructions .ROUTE .MEDSUPPLY Qty: 1 0RF Rx Instructions: Use to check blood sugar at least once daily (DME) lancets 26 gauge misc See Rx Instructions .ROUTE .MEDSUPPLY Qty: 100 0RF Rx Instructions: Use to check blood sugar at least once daily (DME) pen needle, diabetic [CareFine Pen Needle] 31 gauge x 5/16 needle See Rx Instructions .ROUTE .MEDSUPPLY Qty: 100 6RF Rx Instructions: Use with insulin pen once daily at bedtime glipizide 10 mg tablet extended release 24hr 10 mg PO BID Qty: 180 1RF Hold Instructions: Needs labs metformin 850 mg tablet 850 mg PO .TIDCC Qty: 270 1RF Hold Instructions: Needs labs Rx Instructions: Please contact PCP for an appointment simvastatin 20 mg tablet 20 mg PO DAILY Qty: 90 1RF Hold Instructions: Needs labs (DME) Blood Glucose Test Strip See Rx Instructions .ROUTE .MEDSUPPLY Qty: 100 3RF Rx Instructions: Use to check blood sugar at least once daily Humulin N NPH Insulin KwikPen 100 unit/mL (3 mL) insulin pen See Rx Instructions SUBCUT .COMPLEX MDD 40 units Qty: 36 1RF Hold Instructions: Needs labs Rx Instructions: 25 units in the AM, 15 units in the PM; SUBCUT; losartan 25 mg tablet 25 mg PO DAILY Qty: 90 3RF prednisolone acetate 1 % drops,suspension 1 drop EYE-LEFT BID ketorolac 0.5 % drops 1 drop EYE-LEFT BID Qty: 3 0RF aspirin 81 mg tablet,delayed release (DR/EC) 81 mg PO DAILY Referrals: Junior Steward MD [Primary Care Provider] - Visit Report Forms: Patient Portal/API
== END 2022-01-28 13:06 | disposition home or self-care (01) ==
PROVIDERS: Emergency Provider Emergency Medicine; PCP Student in an Organized Health Care Education/Training Program
DX: E11.649 Type 2 diabetes mellitus with hypoglycemia without coma (principal); S30.1XXA Contusion of abdominal wall, initial encounter; R07.9 Chest pain, unspecified; W19.XXXA Unspecified fall, initial encounter; Z20.822 Contact with and (suspected) exposure to COVID-19
CPT/HCPCS: 36415; 71101; 80053; 81003; 82550; 82962; 83690; 84484; 85025; 87635; 93005; 99283; 99284; C9803

== ENCOUNTER → 2022-08-01 13:25 | Outpatient (CLI) | payer OTHER, SELFPAY ==
[2022-08-01 13:58] LABS: Hemoglobin A1C% w Est Avg Glu 9.1 % (4.0-6.0)
[2022-08-01 14:03] LABS: BUN Creatinine Ratio 26.7 (6-22); Blood Urea Nitrogen 16 mg/dL (7-17); Estimated Glomerular Filt Rate > 60 mL/min (>60)
[2022-08-01 14:54] LABS: Vitamin B12 911 pg/mL (239-931)
[2022-08-01 16:16] LABS: Creatinine Urine Random 140.9 mg/dL
== END ==
PROVIDERS: PCP Student in an Organized Health Care Education/Training Program; Referring Provider Student in an Organized Health Care Education/Training Program; Visit Provider Student in an Organized Health Care Education/Training Program
DX: E11.65 Type 2 diabetes mellitus with hyperglycemia (principal); I10 Essential (primary) hypertension; Z79.4 Long term (current) use of insulin; E53.8 Deficiency of other specified B group vitamins
CPT/HCPCS: 36415; 82043; 82565; 82570; 82607; 83036; 84520

== ENCOUNTER → 2022-11-07 11:58 | Outpatient (CLI) | payer OTHER, SELFPAY ==
[2022-11-08 05:19] LABS: x Labcorp Estim. Avg Glu (eAG) 206 mg/dL (.); x Labcorp Hemoglobin A1c 8.8 % (4.8-5.6)
== END ==
PROVIDERS: PCP Student in an Organized Health Care Education/Training Program; Referring Provider Student in an Organized Health Care Education/Training Program; Visit Provider Student in an Organized Health Care Education/Training Program
DX: E11.65 Type 2 diabetes mellitus with hyperglycemia (principal)
CPT/HCPCS: 36415; 83036

== ENCOUNTER → 2023-05-09 10:00 | Outpatient (CLI) | payer OTHER, SELFPAY ==
[2023-05-09 10:28] LABS: Hematocrit 43.4 % (36-46); Hemoglobin 14.5 g/dL (12.0-16.0); Mean Corpuscular HGB Conc 33.4 % (30-36); Mean Corpuscular Hemoglobin 28.3 PG (26-34); Mean Corpuscular Volume 84.7 fL (80-100); Platelet Count 302 X10^3/uL (150-400); Red Blood Cell Count 5.12 X10^6/uL (4.0-5.2); Red Cell Distribution Width 14.9 % (11.6-14.8)
[2023-05-09 10:37] LABS: Hemoglobin A1C% w Est Avg Glu 8.8 % (4.0-6.0)
[2023-05-09 10:44] LABS: Alanine Aminotransferase 18 IU/L (<35); Albumin 4.2 g/dL (3.5-5.0); Albumin Globulin Ratio 1.3 (1.0-2.8); Alkaline Phosphatase 75 U/L (38-126); Aspartate Aminotransferase 22 IU/L (14-36); BUN Creatinine Ratio 21.1 (6-22); Bilirubin Total 1.2 mg/dL (0.2-1.3); Blood Urea Nitrogen 15 mg/dL (7-17); Calcium 9.8 mg/dL (8.4-10.2); Carbon Dioxide 27 mmol/L (22-32); Chloride 99 mmol/L (98-107); Cholesterol 165 mg/dL (140-199); Estimated Glomerular Filt Rate > 60 mL/min (>60); Globulin 3.2 g/dL (1.7-4.1); Glucose 184 mg/dL (80-110); HDL Cholesterol 83 mg/dL (40-60); HEMOLYSIS < 15 (0-50); LDL Cholesterol Calculated 57 mg/dL (<100); Potassium 4.3 mmol/L (3.4-5.1); Sodium 136 mmol/L (137-145); Total Protein 7.4 g/dL (6.3-8.2); Triglycerides 127 mg/dL (35-150)
[2023-05-09 11:11] LABS: TSH w/ Reflex to FT4 1.45 uIU/mL (0.47-4.68)
[2023-05-09 11:32] LABS: Vitamin B12 > 1000 pg/mL (239-931)
[2023-05-09 17:12] LABS: Creatinine Urine Random 117.8 mg/dL
[2023-05-09 17:16] LABS: Microalbumi Creatinin Ratio Ur 6.7 ug/mg CR (<30); Microalbumin Urine Random 0.8 mg/dL (0-1.6)
== END ==
PROVIDERS: PCP Internal Medicine; Referring Provider Internal Medicine; Visit Provider Internal Medicine
DX: I10 Essential (primary) hypertension (principal); E11.69 Type 2 diabetes mellitus with other specified complication; E78.5 Hyperlipidemia, unspecified; E78.2 Mixed hyperlipidemia; E53.8 Deficiency of other specified B group vitamins
CPT/HCPCS: 36415; 80053; 80061; 82043; 82570; 82607; 83036; 84443; 85027

== ENCOUNTER → 2023-08-14 12:14 | Outpatient (CLI) | payer OTHER, SELFPAY ==
[2023-08-14 13:20] LABS: BUN Creatinine Ratio 23.1 (6-22); Blood Urea Nitrogen 15 mg/dL (7-17); Calcium 9.5 mg/dL (8.4-10.2); Carbon Dioxide 27 mmol/L (22-32); Chloride 103 mmol/L (98-107); Estimated Glomerular Filt Rate > 60 mL/min (>60); Glucose 127 mg/dL (80-110); HEMOLYSIS < 15 (0-50); Potassium 4.6 mmol/L (3.4-5.1); Sodium 138 mmol/L (137-145)
[2023-08-15 12:09] LABS: x Labcorp Estim. Avg Glu (eAG) 189 mg/dL (.); x Labcorp Hemoglobin A1c 8.2 % (4.8-5.6)
== END ==
PROVIDERS: PCP Internal Medicine; Referring Provider Internal Medicine; Visit Provider Internal Medicine
DX: E78.5 Hyperlipidemia, unspecified (principal); E08.321 Diabetes mellitus due to underlying condition with mild nonproliferative diabetic retinopathy with macular edema; I10 Essential (primary) hypertension
CPT/HCPCS: 36415; 80048; 83036

== ENCOUNTER → 2024-02-14 12:14 | Outpatient (CLI) | payer OTHER, SELFPAY ==
[2024-02-14 13:58] LABS: Blood Urea Nitrogen 18 mg/dL (7-17); Calcium 9.6 mg/dL (8.4-10.2); Carbon Dioxide 26 mmol/L (22-32); Chloride 102 mmol/L (98-107); Estimated Glomerular Filt Rate > 60 mL/min (>60); Glucose 102 mg/dL (80-110); HEMOLYSIS < 15 (0-50); Potassium 4.8 mmol/L (3.4-5.1); Sodium 138 mmol/L (137-145)
[2024-02-14 14:00] LABS: Hemoglobin A1C% w Est Avg Glu 7.3 % (4.0-6.0)
== END ==
LOC: LAB 12:14
PROVIDERS: PCP Internal Medicine; Referring Provider Internal Medicine; Visit Provider Internal Medicine
DX: E11.69 Type 2 diabetes mellitus with other specified complication (principal); E78.5 Hyperlipidemia, unspecified
CPT/HCPCS: 36415; 80048; 83036

== ENCOUNTER → 2024-05-16 08:45 | Outpatient (CLI) | payer OTHER, SELFPAY ==
[2024-05-16 10:20] LABS: Hemoglobin A1C% w Est Avg Glu 8.2 % (4.0-6.0)
[2024-05-16 10:35] LABS: Aspartate Aminotransferase 20 IU/L (14-36); BUN Creatinine Ratio 21.4 (6-22); Blood Urea Nitrogen 15 mg/dL (7-17); Calcium 9.4 mg/dL (8.4-10.2); Carbon Dioxide 28 mmol/L (22-32); Chloride 105 mmol/L (98-107); Cholesterol 152 mg/dL (140-199); Estimated Glomerular Filt Rate > 60 mL/min (>60); Glucose 93 mg/dL (80-110); HDL Cholesterol 72 mg/dL (40-60); HEMOLYSIS < 15 (0-50); LDL Cholesterol Calculated 61 mg/dL (<100); Potassium 4.7 mmol/L (3.4-5.1); Sodium 137 mmol/L (137-145); Triglycerides 93 mg/dL (35-150)
[2024-05-16 12:11] LABS: Creatinine Urine Random 93.98 mg/dL
[2024-05-16 12:16] LABS: Microalbumin Urine Random 0.6 mg/dL (0-1.6)
== END ==
PROVIDERS: PCP Internal Medicine; Referring Provider Internal Medicine; Visit Provider Internal Medicine
DX: E11.69 Type 2 diabetes mellitus with other specified complication (principal); E11.311 Type 2 diabetes mellitus with unspecified diabetic retinopathy with macular edema; E78.5 Hyperlipidemia, unspecified
CPT/HCPCS: 36415; 80048; 80061; 82043; 82570; 83036; 84450